=== PATIENT | female | born 1960 | race Caucasian/White ===

== ENCOUNTER 2020-03-15 13:35 | Outpatient (CLI) | payer MEDICARE, MEDICAID, SELFPAY ==
--- NOTE | ~2020-03-15 | XR_ITS ---
EXAMINATION: XR chest 2V DATE: 03/15/2020 15:10 INDICATION: Dizziness. Shortness of breath on exertion. TECHNIQUE: Frontal and lateral views of the chest were obtained. COMPARISON: Chest 2 views 06/16/2017 FINDINGS: There is mild atelectasis in lingula. No pleural effusion or pneumothorax. The heart size i s normal. There are surgical clips in the abdomen. IMPRESSION: 1. Mild atelectasis in the lingula. Reviewed, dictated and finalized at location A.
--- NOTE | 2020-03-15 15:20 | ECG_ITS ---
Measurements Intervals [place] Rate: 62 P: 15 NH: 171 QRS: -36 QRSD: 105 T: 0 QT: 390 QTc: 396 Interpretive Statements SINUS RHYTHM LEFT AXIS DEVIATION INCOMPLETE RIGHT BUNDLE BRANCH BLOCK BORDERLINE R WAVE PROGRESSION, ANTERIOR LEADS T WAVE ABNORMALITY IN ANTERIOR LEADS- CONSIDER ISCHEMIA ABNORMAL ECG Electronically Signed On 03-15-2020 15:55:47 CDT by Shubham Reardno D.O.
== END 2020-03-15 13:36 | disposition home or self-care (01) ==
DX: R42 Dizziness and giddiness (principal); R06.02 Shortness of breath; J98.11 Atelectasis; I45.10 Unspecified right bundle-branch block; R94.31 Abnormal electrocardiogram [ECG] [EKG]
CPT/HCPCS: 71046; 93005

== ENCOUNTER 2020-05-07 11:00 | Outpatient (RCR) | payer MEDICARE, MEDICAID, SELFPAY ==
--- NOTE | 2020-02-25 11:42 | PTOPEVAL ---
Thank you for referring Nevin Perkins to [facility].? The patient is scheduled to be seen for therapy? 2 x/week for 6 weeks. Please review, sign, date and return this plan of care SHOLA. I agree with and certify that the following plan of care is medically necessary. Referring Physician Date Admitting Provider: Attending Provider: PHYSICIAN NOT ON STAFF Referring Provider: *PT Outpatient Evaluation Start: 02/25/20 10:27 Freq: Status: Active Protocol: Document 02/25/20 10:29 [facility] (Rec: 02/25/20 11:21 [facility] [id number]) Therapy Assessment Status Assessment Status Assessment Status Evaluation Outpatient Past Medical History Past Medical History Source of Past Medical History Patient Cardiovascular History Hx Hypertension Yes Endocrine History Hx Diabetes Yes Evaluation Information Problem Diagnosis B knee arthritis Additional Evaluation Detail Pt states increased pain and difficulty when completing housework, usual hobbies, getting in/out of the car/bath , walking, putting on shoes/ socks, lifting, navigating stairs, standing greater than 2 minutes, sitting greater than 10 min, transitioning sit <> stand, and with bed mobility. Subjective Information Pt had PT evaluation here December Query Text:As Reported By Patient/ of last year, brother had a Family stroke and only able to make it 2 visits. Reports pain started a couple years ago and has progressively gotten worse. States they get stiff after prolonged standing (a few min) or sitting (10 min). Once she gets moving in the morning she feels her best and it gets progressively worse throughout the day with R knee pain > L. Her back started hurting a few months ago Denies pain medication Pt was doing manolo multiple times per week 5 years ago until she twisted R knee and hasn't been able to since Diagnostic Tests X-Rays For This Problem No MRI For This Problem
--- NOTE | 2020-03-10 08:04 | PCPTNOTE ---
Patient called and cancelled scheduled appointment due to not feeling well.
--- NOTE | 2020-03-22 08:23 | PCPTNOTE ---
Patient no show this date. Patient did not answer call and doesn't have voicemail set up.
--- NOTE | 2020-03-29 09:40 | PCPTNOTE ---
Pt called and cancelled appointment due to over sleeping.
--- NOTE | 2020-04-08 09:35 | PTOPEVAL ---
Thank you for referring Nevin Perkins to [facility].? The patient is scheduled to be seen for therapy? 2 x/week for 4 weeks. Please review, sign, date and return this plan of care SHOLA. I agree with and certify that the following plan of care is medically necessary. Referring Physician Date Referring Provider: Dejah Arellano NP *PT Outpatient Evaluation Start: 02/25/20 10:27 Freq: Status: Active Protocol: Document 04/08/20 08:33 [facility] (Rec: 04/08/20 09:19 [facility] [id number]) Therapy Assessment Status Assessment Status Assessment Status Re-evaluation Evaluation Information Problem Diagnosis B knee arthritis Additional Evaluation Detail Pt states increased pain and difficulty when completing housework, usual hobbies, getting in/out of the car/bath, walking, putting on shoes/ socks, lifting, navigating stairs, standing greater than 2 minutes, sitting greater than 10 min, transitioning sit <> stand, and with bed mobility. Subjective Information States they get stiff after Query Text:As Reported By Patient/ prolonged standing, (5 min) or Family sitting (20 min). Reports her knee pain varies during the day. If she changes positions it helps with her pain. She uses a rollator for distance to allow her to sit when tired. She does not use an AD in the house. Reports right knee is always worse then the left. Pain Assessment Timing of Pain Assessment Timing of Pain Assessment Re-assessment Pain Scale Pain Scale Used Numeric (1 - 10) Self Report Pain Assessment Bilateral Knee(s) Reported Pain Level 3 Pain Description Aching Pain Frequency Chronic,Continuous Lowest Pain Intensity 2 Greatest Pain Intensity 8 Pain Aggravating Factors Stair Climbing,Walking,Weight Bearing/Standing Pain Score Pain Score 3: Self Report Lower Extremity Range of Motion Knee Range of Motion Right Knee Flexion Range of Motion - Active 110 Knee Range of Motion Comments Anterior knee pain at end range Left Knee Flexion Range of Motion - Active 120 Lower Extremity Muscle Strength Testing Hip Strength Right Hip Flexion
--- NOTE | 2020-04-16 10:21 | PCPTNOTE ---
Patient called & cancelled scheduled appointment this date due to having a migraine.
--- NOTE | 2020-04-22 13:48 | PCPTNOTE ---
Patient did not show up for scheduled appointment this date; called and left voicemail with reminder for next appointment SundayApril 27 @ 9:15am.
--- NOTE | 2020-05-07 12:38 | PTOPEVAL ---
Thank you for referring Nevin Perkins to [facility].? Pt has been seen for 15 physical therapy visits to address екатерина knee pain. She demonstrates improved knee motion, improved leg strength and improved tolerance with daily activities. She is indep with her HEP. She has achieved or partially achieved her therapy goals. DC skilled PT services at this time. Please review, sign, date and return this plan of care SHOLA. I agree with and certify that the following plan of care is medically necessary. Referring Physician Date Referring Provider: *PT Outpatient Evaluation Start: 02/25/20 10:27 Freq: Status: Active Protocol: Document 05/07/20 11:08 [facility] (Rec: 05/07/20 11:55 [facility] [id number]) Therapy Assessment Status Assessment Status Discharge Note Evaluation Information Problem Diagnosis B knee arthritis Additional Evaluation Detail Pt states increased pain and difficulty when completing housework, usual hobbies, getting in/out of the car/bath , walking, putting on shoes/ socks, lifting, navigating stairs, standing greater than 2 minutes, sitting greater than 10 min, transitioning sit <> stand, and with bed mobility. Subjective Information States they get stiff after Query Text:As Reported By Patient/ prolonged standing, (20min) or Family sitting (20 min). Reports improved knee pain with daily activities of walking and IADL's activities varies during the day. She uses a rollator for distance to allow her to sit when tired. She does not use an AD in the house. Reports right knee is always worse then the left. She is able to carry grocery bags to the steps, but her sister then carries the bags into the house. Pain Assessment Timing of Pain Assessment Timing of Pain Assessment Pre-Treatment Pain Scale Pain Scale Used Numeric (1 - 10) Self Report Pain Assessment Bilateral Knee(s) Reported Pain Level 2 Pain Description Aching Pain Frequency Chronic,Continuous Lowest Pain Intensity 1 Greatest Pain Intensity 7 Pain Aggravating Factors ADL's,Bending,Exercise/
== END 2020-05-10 14:34 | disposition home or self-care (01) ==
LOC: ANHPT 11:00
DX: M13.869 Other specified arthritis, unspecified knee (principal)
CPT/HCPCS: 97014; 97110; 97112; 97140; 97161; 97530; G0283

== ENCOUNTER 2020-10-27 15:17 | Outpatient (CLI) | payer MEDICARE, MEDICAID, SELFPAY ==
--- NOTE | ~2020-10-27 | XR_ITS ---
EXAMINATION: XR knee RT 3V DATE: 10/27/2020 15:44 INDICATION: Right knee pain. TECHNIQUE: 3 views of right knee were obtained. COMPARISON: None. FINDINGS: Bone alignment is normal. No fracture. There is mild osteoarthritis of medial and lateral c ompartments and moderate osteoarthritis of patellofemoral compartment. There is a small knee joint ef fusion. IMPRESSION: 1. Moderate right knee osteoarthritis. 2. Small right knee joint effusion. Reviewed, dictated and finalized at location A.
== END 2020-10-27 15:18 | disposition home or self-care (01) ==
PROVIDERS: PCP Nurse Practitioner Family; Visit Provider Nurse Practitioner Family
DX: M25.561 Pain in right knee (principal); M17.11 Unilateral primary osteoarthritis, right knee; M25.461 Effusion, right knee
CPT/HCPCS: 73562

== ENCOUNTER 2021-01-20 09:30 | Outpatient (RCR) | payer MEDICARE, MEDICAID, SELFPAY ==
--- NOTE | 2020-12-22 09:49 | PTOPEVAL ---
Thank you for referring Nevin Perkins to [facility].? The patient is scheduled to be seen for therapy? 2 x/week for 3 weeks. Please review, sign, date and return this plan of care SHOLA. I agree with and certify that the following plan of care is medically necessary. Referring Physician Date Attending Provider: Milo Morales, MD Diagnosis chronic right knee pain, OA of knee Onset 07/15 Additional Evaluation Detail She has had multiple falls. She has had 1 fall a month. Subjective Information She is not able to perform her Query Text:As Reported By Patient/ exercises due to pain. She Family has not performed HEP for 1 month She reports limitations with shopping, prolonged standing > 10 min. She is unable to stand for cooking/cleaning. She has to use a cart when shopping. She will use a rollator at time outside. House is too small to use an AD. Her roommate completes all daily chores at the house. Denies pain changes with steps. Performs in a step together pattern. Reports difficulty getting out of a chair. Diagnostic Tests X-Rays For This Problem Yes: moderate osteoarthritis of patellofemoral compartment. Pain Assessment Self Report Pain Assessment Right Knee(s) Reported Pain Level 6 Pain Description Aching,Sharp Pain Frequency Chronic,Continuous Lowest Pain Intensity 2 Greatest Pain Intensity 7 Pain Aggravating Factors Stair Climbing,Walking,Weight Bearing/Standing Pain Behaviors Anxious Lower Extremity Range of Motion General Lower Extremity Range of Motion Gross Lower Extremity Range of Motion left knee flex: 95 dg, right Comments knee flex: 100 dg limited by soft tissue Lower Extremity Muscle Strength Testing Hip Strength Right Hip Flexion Strength 3- Fair - Hip Extension Strength 3- Fair - Hip Abduction Strength 3- Fair - Left Hip Flexion Strength 3- Fair - Hip Extension Strength 3- Fair - Hip Abduction Strength 3- Fair - Knee Strength Right Knee Flexion Strength 3- Fair - Knee Extension Strength 4- Good - Left Knee Flexion Strength 3 Fair Knee Extension Strength
--- NOTE | 2021-01-11 10:42 | PCPTNOTE ---
Patient did not show up for scheduled appointment this date. left message regarding no show. Next visit on 01/13/21.
--- NOTE | 2021-01-13 09:45 | PCPTNOTE ---
Patient called & cancelled scheduled appointment this date due to family emergency.
--- NOTE | 2021-01-20 10:17 | PTOPEVAL ---
Thank you for referring Nevin Perkins to [facility].? Nevin has attended 5 therapy visits to address decreased balance and knee pain. See summary below to see progress as result of therapy services. She has reached her maximal potential with skilled therapy services. Will Dc skilled therapy services. Please review, sign, date and return this discharge summary SHOLA. I agree with and certify that the following plan of care is medically necessary. Referring Physician Date Attending Provider: Milo Morales, Discharge Note Diagnosis chronic right knee pain, OA of knee Onset 07/15 Additional Evaluation Detail She has had multiple falls. She has had 1 fall a month. Subjective Information She is able to perform all of Query Text:As Reported By Patient/ her exercises how. Family She reports limitations with prolonged sitting. She is able to walk part of the store. Remains limited to standing > 10 min. She does the prep work for cooking. She has to use a cart when shopping. She will use a rollator at time outside. Performs the steps is easier with reciprical pattern. Pain Assessment Self Report Pain Assessment Right Knee(s) Reported Pain Level 3 Greatest Pain Intensity 6 Lower Extremity Muscle Strength Testing Hip Strength Right Hip Flexion Strength 4 Good Hip Extension Strength 3+ Fair + Hip Abduction Strength 3+ Fair + Left Hip Flexion Strength 4- Good - Hip Extension Strength 4- Good - Hip Abduction Strength 3+ Fair + Knee Strength Right Knee Flexion Strength 4- Good - Knee Extension Strength 4+ Good + Left Knee Flexion Strength 4- Good - Knee Extension Strength 4- Good - Ankle Strength Bilateral Ankle Dorsiflexion Strength 5 Normal Balance Assessment Time Up Go (TUG) Timed Up and Go Test (TUG) (Seconds) 10 Assistive Devices None Comments no increased pain Gait Assessment Gait Pattern Assessment Gait Pattern Observed Decreased Stride Length - Left ,Decreased Stride Length - Right,Excessive Knee Flex - Left,Excessive Knee Flex - Right,No Heel Strike - Left,No Heel Strike - Right,Trunk Flexed Other Gait Observations hip ext. rotation 2 Minute Walk Total Distance Walked (feet) 28
== END 2021-03-07 13:02 | disposition home or self-care (01) ==
LOC: ANHPT 09:30
PROVIDERS: PCP Nurse Practitioner Family; Visit Provider Orthopaedic Surgery
DX: M25.561 Pain in right knee (principal); M17.11 Unilateral primary osteoarthritis, right knee
CPT/HCPCS: 97110; 97162; 97530

== ENCOUNTER 2021-03-22 12:26 | Outpatient (CLI) | payer MEDICARE, MEDICAID, SELFPAY ==
[2021-03-22 12:53] LABS: Hematocrit 41.5 % (37.0-47.0); Hemoglobin 13.8 g/dL (12.0-15.0); Mean Corpuscular HGB Conc 33.3 g/dl (32-36); Mean Corpuscular Hemoglobin 30.7 pg (26-34); Mean Corpuscular Volume 92.2 fl (80-100); Mean Platelet Volume 7.8 fl (7.4-10.4); Platelet Count Result 200 k/mm3 (150-375); Red Cell Distribution Width 12.8 % (11.5-14.5); White Blood Count 9.5 K/mm3 (4.5-10.0)
[2021-03-22 13:01] LABS: Alanine Aminotransferase 22 U/L (4-35); Albumin Level 4.6 g/dL (3.5-5.1); Alkaline Phosphatase 65 U/L (38-126); Anion Gap 12 mmol/L (8-16); Aspartate Amino Transferase 28 U/L (14-36); Bilirubin,Total 0.3 mg/dL (0.2-1.3); Blood Urea Nitrogen 5 mg/dL (7-17); Calcium 10.4 mg/dL (8.4-10.2); Carbon Dioxide 30 mmol/L (22-30); Chloride 92 mmol/L (98-107); Estimated Glomerular Filt Rate > 60; Glucose 146 mg/dL (65-110); Potassium 4.5 mmol/L (3.4-5.0); Sodium 134 mmol/L (137-145)
[2021-03-22 13:52] LABS: Valproic Acid 36.3 ug/mL (50-120)
== END 2021-03-22 12:27 | disposition home or self-care (01) ==
LOC: ANHLAB 12:33
PROVIDERS: PCP Nurse Practitioner Family
DX: Z51.81 Encounter for therapeutic drug level monitoring (principal); Z79.899 Other long term (current) drug therapy
CPT/HCPCS: 36415; 80053; 80164; 85027

== ENCOUNTER 2021-04-19 08:06 | Outpatient (CLI) | payer MEDICARE, MEDICAID, SELFPAY ==
[2021-04-19 08:27] LABS: Hemoglobin 13.5 g/dL (12.0-15.0); Mean Corpuscular HGB Conc 34.6 g/dl (32-36); Mean Corpuscular Hemoglobin 31.3 pg (26-34); Mean Corpuscular Volume 90.5 fl (80-100); Mean Platelet Volume 7.7 fl (7.4-10.4); Platelet Count Result 167 k/mm3 (150-375); Red Blood Count 4.31 M/mm3 (4.2-5.4); Red Cell Distribution Width 12.7 % (11.5-14.5); White Blood Count 10.5 K/mm3 (4.5-10.0)
[2021-04-19 08:51] LABS: Alanine Aminotransferase 18 U/L (4-35); Albumin Level 4.3 g/dL (3.5-5.1); Alkaline Phosphatase 59 U/L (38-126); Anion Gap 13 mmol/L (8-16); Aspartate Amino Transferase 24 U/L (14-36); Bilirubin,Total 0.3 mg/dL (0.2-1.3); Blood Urea Nitrogen 8 mg/dL (7-17); Calcium 10.3 mg/dL (8.4-10.2); Carbon Dioxide 29 mmol/L (22-30); Chloride 83 mmol/L (98-107); Estimated Glomerular Filt Rate > 60; Glucose 176 mg/dL (65-110); Potassium 4.1 mmol/L (3.4-5.0); Sodium 125 mmol/L (137-145)
[2021-04-19 09:10] LABS: Valproic Acid 87.8 ug/mL (50-120)
== END 2021-04-19 08:07 | disposition home or self-care (01) ==
PROVIDERS: PCP Nurse Practitioner Family
DX: Z79.899 Other long term (current) drug therapy (principal)
CPT/HCPCS: 36415; 80053; 80164; 85027

== ENCOUNTER 2021-07-21 13:32 | Outpatient (RCR) | payer OTHER, SELFPAY ==
[2021-05-24 13:45] LABS: Basophils Absolute Auto 0.1 K/mm3 (0.0-0.1); Basophils Percent Auto 0.6 % (0.2-1.2); Eosinophils Absolute Auto 0.3 K/mm3 (0-0.3); Eosinophils Percent Auto 2.9 % (0-4.4); Hematocrit 37.9 % (37.0-47.0); Hemoglobin 12.8 g/dL (12.0-15.0); Immature Granulocyte Absolute 0.06 K/mm3 (0.00-0.031); Immature Granulocyte Percent A 0.6 % (0-0.5); Lymphocytes Absolute Auto 1.96 K/mm3 (0.9-3.2); Mean Corpuscular HGB Conc 33.8 g/dl (32-36); Mean Corpuscular Hemoglobin 30.3 pg (26-34); Mean Corpuscular Volume 89.8 fl (80-100); Mean Platelet Volume 7.7 fl (7.4-10.4); Monocytes Absolute Auto 0.6 K/mm3 (0.1-0.6); Monocytes Percent Auto 6.2 % (2.6-8.5); Neutrophils Absolute Auto 6.8 K/mm3 (1.3-6.7); Neutrophils Percent Auto 69.7 % (45.5-73.1); Platelet Count Result 207 k/mm3 (150-375); Red Blood Count 4.22 M/mm3 (4.2-5.4); Red Cell Distribution Width 12.6 % (11.5-14.5); White Blood Count 9.8 K/mm3 (4.5-10.0)
[2021-05-27 20:48] LABS: Clozapine 856 mcg/L; Norclozapine 246 mcg/L (25-400)
[2021-07-20 16:41] LABS: Basophils Absolute Auto 0.1 K/mm3 (0.0-0.1); Basophils Percent Auto 0.8 % (0.2-1.2); Eosinophils Absolute Auto 0.1 K/mm3 (0-0.3); Eosinophils Percent Auto 2.3 % (0-4.4); Hematocrit 40.6 % (37.0-47.0); Hemoglobin 13.7 g/dL (12.0-15.0); Immature Granulocyte Absolute 0.04 K/mm3 (0.00-0.031); Immature Granulocyte Percent A 0.6 % (0-0.5); Lymphocytes Absolute Auto 1.51 K/mm3 (0.9-3.2); Lymphocytes Percent Auto 24.4 % (18.3-44.2); Mean Corpuscular HGB Conc 33.7 g/dl (32-36); Mean Corpuscular Hemoglobin 29.7 pg (26-34); Mean Corpuscular Volume 88.1 fl (80-100); Mean Platelet Volume 8.2 fl (7.4-10.4); Monocytes Absolute Auto 0.5 K/mm3 (0.1-0.6); Monocytes Percent Auto 8.1 % (2.6-8.5); Neutrophils Absolute Auto 3.9 K/mm3 (1.3-6.7); Neutrophils Percent Auto 63.8 % (45.5-73.1); Platelet Count Result 204 k/mm3 (150-375); Red Blood Count 4.61 M/mm3 (4.2-5.4); Red Cell Distribution Width 13.4 % (11.5-14.5); White Blood Count 6.2 K/mm3 (4.5-10.0)
[2021-07-25 11:59] LABS: Clozapine 538 mcg/L; Norclozapine 186 mcg/L (25-400)
== END 2021-08-22 23:59 | disposition home or self-care (01) ==
LOC: ANHLAB 13:32
PROVIDERS: PCP Nurse Practitioner Family
DX: Z51.81 Encounter for therapeutic drug level monitoring (principal); Z79.899 Other long term (current) drug therapy
CPT/HCPCS: 36415; 80159; 85025